=== PATIENT | female | born 1955 | race Caucasian/White ===

== ENCOUNTER 2016-08-23 15:25 | Emergency (ER) | payer OTHER ==
[2016-08-23] MEDS ORDERED: ONDANSETRON 4 MG/2 ML VIAL IVPB ONE (15:43)
[2016-08-23] MEDS ORDERED: morphine CARPU-JECT 4 MG/1 ML DISP.SYRIN IVPUSH ONE (15:43)
[2016-08-23] MEDS ORDERED: SODIUM CHLORIDE 1,000 ML IV STA (15:44)
[2016-08-23] MEDS ORDERED: morphine CARPU-JECT 10 MG/1 ML DISP.SYRIN ONE (15:54)
[2016-08-23] MEDS ORDERED: ONDANSETRON 4 MG/2 ML VIAL ONE (15:54)
--- NOTE | 2016-08-23 15:58 | PDOC ---
History of Present Illness - History of Present Illness Initial Comments: 08/23/16 16:02 The patient is a 60 year old female with a PMHx of HLD, HTN who presents to the ED with LLQ pain that radiates to her left lower side and left lower back. She reports associated episodes of nausea and vomiting. She states she had similar symptoms about a week ago, which resolved after vomiting. She states that the pain occurred suddenly while at work. She denies chest pain, shortness of breath. She denies fever, chills. <Candy Yeh - Last Filed: 08/23/16 16:02> - General History Source: Patient Exam Limitations: No Limitations <Daniel Evans - Last Filed: 08/23/16 17:37> - General Chief Complaint: Pain, Acute Stated Complaint: LEFT LOWER ABD PAIN Time Seen by Provider: 08/23/16 15:43 Past History <Candy Yeh - Last Filed: 08/23/16 16:02> <Daniel Evans - Last Filed: 08/23/16 17:37> - Past Medical History Allergies/Adverse Reactions: Allergies Allergy/AdvReac Type Severity Reaction Status Date / Time metronidazole [From Flagyl] Allergy Verified 08/23/16 15:40 Penicillins Allergy Verified 08/23/16 15:40 Sulfa (Sulfonamide Allergy Verified 08/23/16 15:40 Antibiotics) Home Medications: Ambulatory Orders Naproxen [Naprosyn -] 500 mg PO BID PRN #20 tablet 08/23/16 Ondansetron HCl [Zofran] 4 mg PO Q6H PRN #15 tablet 08/23/16 Oxycodone HCl/Acetaminophen [Percocet 5-325 mg Tablet] 1 tab PO Q6H PRN #15 tablet MDD 4 08/23/16 Tamsulosin HCl [Flomax] 0.4 mg PO DAILY #14 cap.er.24h 08/23/16 Review of Systems - Review of Systems Comments:: 08/23/16 16:02 GENERAL/CONSTITUTIONAL: No fever or chills. No weakness. HEAD, EYES, EARS, NOSE AND THROAT: No change in vision. No ear pain or discharge. No sore throat. CARDIOVASCULAR: No chest pain or shortness of breath. RESPIRATORY: No cough, wheezing, or hemoptysis. GASTROINTESTINAL: No nausea, vomiting, diarrhea or constipation. GENITOURINARY: No dysuria, frequency, or change in urination. MUSCULOSKELETAL: No joint or muscle swelling or pain. No neck or back pain. SKIN: No rash NEUROLOGIC: No headache, vertigo, loss of consciousness, or change in strength/ sensation. ENDOCRINE: No increased thirst. No abnormal weight change. HEMATOLOGIC/LYMPHATIC: No anemia, easy bleeding, or history of blood clots. ALLERGIC/IMMUNOLOGIC: No hives or skin allergy. <Candy Yeh - Last Filed: 08/23/16 16:02> *Physical Exam - Physical Exam Comments: 08/23/16 16:02 GENERAL: Awake, alert, and fully oriented, uncomfortable appearing. HEAD: No signs of trauma EYES: PERRLA, EOMI, sclera anicteric, conjunctiva clear ENT: Auricles normal inspection, hearing grossly normal, nares patent, oropharynx clear without exudates. Moist mucosa NECK: Normal ROM, supple, no lymphadenopathy, JVD, or masses LUNGS: Breath sounds equal, clear to auscultation bilaterally. No wheezes, and no crackles HEART: Regular rate and rhythm, normal S1 and S2, no murmurs, rubs or gallops ABDOMEN: Soft, nontender, normoactive bowel sounds. No guarding, no rebound. No masses. Left CVA tenderness. EXTREMITIES: Normal range of motion, no edema. No clubbing or cyanosis. No cords, erythema, or tenderness NEUROLOGICAL: Cranial nerves II through XII grossly intact. Normal speech, normal gait SKIN: Warm, Dry, normal turgor, no rashes or lesions noted. <Candy Yeh - Last Filed: 08/23/16 16:02> ED Treatment Course - Medications Given in the ED: ED Medications Discontinued Medications Generic Name Dose Route Start Last Admin Trade Name Freq PRN Reason Stop Dose Admin Morphine Sulfate 4 mg 08/23/16 15:43 08/23/16 15:58 Morphine Injection - IVPUSH 08/23/16 15:44 4 mg ONCE ONE Administration Ondansetron HCl 4 mg 08/23/16 15:43 08/23/16 15:58 Zofran Injection IVPB 08/23/16 15:44 4 mg ONCE ONE Administration <Candy eYh - Last Filed: 08/23/16 16:02> - LABORATORY CBC & Chemistry Diagram: 08/23/16 15:55 08/23/16 15:55 <Daniel Evans - Last Filed: 08/23/16 17:37> Medical Decision Making - Medical Decision Making 08/23/16 15:57 A portion of this note was documented by scribe services under my direction. I have reviewed the details of the note, within reason, and agree with the documentation with the following case summary and management plan written by me. Patient treated in the ED. Nursing notes are reviewed and incorporated into the medical decision-making. Vital signs reviewed. Peripheral IV access obtained by the nurse, laboratory studies are drawn and sent, reviewed and interpreted by myself. 60-year-old female with past medical history of hypertension, hyperlipidemia presents with left flank pain since this morning. Patient reports nausea and left lower quadrant pain. Denies dysuria and hematuria. Denies prior history kidney stones. Patient reports that she feels nauseous. Patient appears to be likely having renal colic. Differential includes polynephritis. We'll obtain a spiral CT, labs, urinalysis and reassess. Pain control, nausea control and reassess. 08/23/16 17:27 CBC, BMP 08/23/16 15:55 08/23/16 15:55 CMP Sodium 138 mmol/L (136-145) 08/23/16 15:55 Potassium 4.4 mmol/L (3.5-5.1) 08/23/16 15:55 Chloride 104 mmol/L (98-107) 08/23/16 15:55 Carbon Dioxide 19 mmol/L (22-28) L 08/23/16 15:55 Anion Gap 15 (8-16) 08/23/16 15:55 BUN 24 mg/dl (7-18) H 08/23/16 15:55 Creatinine 1.2 mg/dl (0.6-1.3) 08/23/16 15:55 Creat Clearance w eGFR 45.83 (>60) 08/23/16 15:55 Random Glucose 132 mg/dl (74-106) H 08/23/16 15:55 Calcium 9.6 mg/dl (8.4-10.2) 08/23/16 15:55 Total Bilirubin 1.2 mg/dl (0.2-1.0) H 08/23/16 15:55 AST 44 U/L (10-42) H 08/23/16 15:55 ALT 24 U/L (10-40) 08/23/16 15:55 Alkaline Phosphatase 71 U/L (32-92) 08/23/16 15:55 Total Protein 7.0 g/dl (6.4-8.3) 08/23/16 15:55 Albumin 4.4 g/dl (3.5-5.0) 08/23/16 15:55 Lipase 37 U/L (22-51) 08/23/16 15:55 Urine Test Results Urine Color Yellow 08/23/16 16:55 Urine Appearance Clear 08/23/16 16:55 Urine pH >= 9.0 (4.5-8) H 08/23/16 16:55 Ur Specific [place] 1.015 (1.005-1.025) 08/23/16 16:55 Urine Protein Trace (NEGATIVE) 08/23/16 16:55 Urine Glucose (UA) Negative (NEGATIVE) 08/23/16 16:55 Urine Ketones Trace (NEGATIVE) 08/23/16 16:55 Urine Blood Trace-intact (NEGATIVE) 08/23/16 16:55 Urine Nitrite Negative (NEGATIVE) 08/23/16 16:55 Urine Bilirubin Negative (NEGATIVE) 08/23/16 16:55 Ur Leukocyte Esterase Negative (NEGATIVE) 08/23/16 16:55 Patient's workup on the CAT scan demonstrates renal colic. There is no evidence of urinary tract infection. White count is 17.4 is likely reactive secondary to kidney stones. The patient is much more comfortable and will go home with her friend. We'll give referral to urologist. Flomax, NSAIDs, rescue Percocets. Return precautions given. Patient was understanding agrees with plan. I discussed the physical exam findings, ancillary test results and final diagnoses with the patient. I answered all of the patient's questions. The patient was satisfied with the care received and felt comfortable with the discharge plan and treatment plan. The patient will call their primary care physician within 24 hours to arrange follow-up and will return to the Emergency Department with any new, persistant or worsening symptoms. <Daniel Evans - Last Filed: 08/23/16 17:37> *DC/Admit/Observation/Transfer - Attestations Scribe Attestion: 08/23/16 16:03 Documentation prepared by Candy Yeh, acting as medical review specialist for Daniel Evans MD. <Candy Yeh - Last Filed: 08/23/16 16:02> - Discharge Dispostion Admit: No <Daniel Evans - Last Filed: 08/23/16 17:37> Diagnosis at time of Disposition: Kidney stone - Discharge Dispostion Disposition: HOME Condition at time of disposition: Improved - Prescriptions Prescriptions: Tamsulosin HCl [Flomax] 0.4 mg PO DAILY #14 cap.er.24h Naproxen [Naprosyn -] 500 mg PO BID PRN #20 tablet PRN Reason: Pain Level 1-5 Oxycodone HCl/Acetaminophen [Percocet 5-325 mg Tablet] 1 tab PO Q6H PRN #15 tablet MDD 4 PRN Reason: Pain 6-10 Ondansetron HCl [Zofran] 4 mg PO Q6H PRN #15 tablet PRN Reason: Nausea - Referrals Referrals: Nikos Dumont MD [Staff Physician] - Priyank Howell MD., MD [Staff Physician] - Abner Clemons MD [Staff Physician] - - Patient Instructions Printed Discharge Instructions: DI for Kidney Stones Additional Instructions: You have a 3 mm kidney stone. You may take several days before your symptoms improved. Take 500 mg of naproxen every 12 hours as needed for pain. For nausea , take a tablet of Zofran every 6 hours as needed. For severe pain control, take a tablet Percocet. This medication may make you drowsy so please be careful. To assist with the kidney stone expulsion, take Flomax daily as prescribed. Please follow-up with a urologist. Call to schedule morning. If you have uncontrollable pain, inability to tolerate her medications, please return to the emergency department for further evaluation.
[2016-08-23] MEDS ORDERED: morphine CARPU-JECT 2 MG/1 ML DISP.SYRIN IVPUSH ONE (16:18)
[2016-08-23 16:24] LABS: BASOPHIL 3.5 % (0-2.0); EOSINOPHIL 0.2 % (0-4.5); MCH 30.3 pg (25.7-33.7); MCHC 34.6 g/dl (32.0-36.0); MEAN CELL VOLUME 87.7 fl (80-96); MEAN PLT VOLUME 8.8 fl (7.5-11.1); NEUTROPHILS 78.9 % (42.8-82.8); PLATELET COUNT 359 K/MM3 (134-434); RDW 12.3 % (11.6-15.6); WHITE BLOOD COUNT 17.4 K/mm3 (4.0-10.0)
[2016-08-23 16:31] LABS: ALBUMIN 4.4 g/dl (3.5-5.0); ALK PHOS 71 U/L (32-92); ANION GAP 15 (8-16); BILIRUBIN,TOTAL 1.2 mg/dl (0.2-1.0); CALCIUM 9.6 mg/dl (8.4-10.2); CO2 19 mmol/L (22-28); CREATININE 1.2 mg/dl (0.6-1.3); GLUCOSE,RANDOM 132 mg/dl (74-106); SGOT/AST 44 U/L (10-42); SGPT/ALT 24 U/L (10-40)
[2016-08-23 16:34] VITALS: BP 157/80; PULSE 77; TEMP 98.3; BMI 22.4
[2016-08-23] MEDS ORDERED: SODIUM CHLORIDE 1,000 ML IV SCH (17:00)
[2016-08-23] MEDS ORDERED: KETOROLAC TROMETHAMINE 30 MG/1 ML VIAL IVPUSH ONE (17:00)
[2016-08-23] MEDS ORDERED: TAMSULOSIN HCL 0.4 MG CAP.ER.24H (FP) PO ONE (17:07)
[2016-08-23 17:14] LABS: PH,URINE >= 9.0 (4.5-8); URINE APPEARANCE Clear; URINE BILIRUBIN Negative (NEGATIVE); URINE BLOOD Trace-intact (NEGATIVE); URINE GLUCOSE (UA) Negative (NEGATIVE); URINE KETONE Trace (NEGATIVE); URINE LEUK ESTERASE Negative (NEGATIVE); URINE NITRITE Negative (NEGATIVE); URINE PROTEIN Trace (NEGATIVE); URINE UROBILINOGEN 0.2 E.U/dl (0.2-1.0)
[2016-08-23 17:16] LABS: URINE COLOR YELLOW
[2016-08-23] MEDS ORDERED: KETOROLAC TROMETHAMINE 30 MG/1 ML VIAL ONE (17:52)
[2016-08-23] MEDS ORDERED: TAMSULOSIN HCL 0.4 MG CAP.ER.24H (FP) ONE (17:55)
== END 2016-08-23 18:34 | disposition home or self-care (01) ==
LOC: FER 15:25
PROC: 3E0333Z Introduction of Anti-inflammatory into Peripheral Vein, Percutaneous Approach (ICD-10-PCS; principal; 2016-08-23)
PROC: 3E033NZ Introduction of Analgesics, Hypnotics, Sedatives into Peripheral Vein, Percutaneous Approach (ICD-10-PCS; 2016-08-23)
PROC: 3E033GC Introduction of Other Therapeutic Substance into Peripheral Vein, Percutaneous Approach (ICD-10-PCS; 2016-08-23)
PROC: 3E0337Z Introduction of Electrolytic and Water Balance Substance into Peripheral Vein, Percutaneous Approach (ICD-10-PCS; 2016-08-23)
DX: N23 Unspecified renal colic (principal); E78.5 Hyperlipidemia, unspecified; I10 Essential (primary) hypertension
CPT/HCPCS: 36415; 74176; 80053; 81003; 83690; 85025; 87086; 99282-25